=== PATIENT | female | born 1980 | race Caucasian/White ===

== ENCOUNTER 2017-10-24 10:03 | Inpatient (IN) | payer MEDICARE ==
[~2017-10-24] VITALS: Ht 165.1 cm; Wt 54.0 kg
[2017-10-24] MEDS ORDERED: HALOPERIDOL 5 MG TABLET PO PRN (13:30)
[2017-10-24] MEDS ORDERED: ZOLPIDEM TARTRATE 10 MG TABLET PO PRN (13:30)
[2017-10-24 13:49] VITALS: BP 96/66
[2017-10-24] MEDS ORDERED: RISP2 PO (14:16)
[2017-10-24 16:00] VITALS: BP 112/72
[2017-10-24] MEDS: LORazepam 2 MG TABLET PO PRN (21:11)
[2017-10-25] MEDS: RisperiDONE 2 MG TABLET PO SCH ×2 (08:42→16:35)
[2017-10-25] MEDS ORDERED: MAGNESIUM HYDROXIDE SUSPENSION 30 ML UDCUP PO PRN (11:15)
[2017-10-25] MEDS ORDERED: ACETAMINOPHEN 325 MG TABLET PO PRN (11:15)
[2017-10-25] MEDS ORDERED: PETROLATUM,WHITE 71 GM JELLY TP PRN (11:15)
[2017-10-25] MEDS ORDERED: IBUPROFEN 400 MG TABLET PO PRN (11:15)
[2017-10-25] MEDS ORDERED: ONDANSETRON HCL 4 MG TABLET PO PRN (11:15)
[2017-10-25] MEDS ORDERED: ALBUTEROL SULFATE HFA 90 MCG/PUFF 8 GM INHALER IH PRN (11:15)
[2017-10-25] MEDS ORDERED: LOPERAMIDE HCL 2 MG CAPSULE PO PRN (11:15)
[2017-10-25] MEDS ORDERED: CloNIDine HCL 0.1 MG TABLET PO PRN (11:15)
[2017-10-25] MEDS ORDERED: DOCUSATE SODIUM 100 MG CAPSULE PO PRN (11:15)
[2017-10-25] MEDS ORDERED: MAG HYDROX/AL HYDROX/SIMETH ES 30 ML SUSPENSION UDCUP PO PRN (11:15)
[2017-10-25] MEDS: LORazepam 2 MG TABLET PO PRN (16:35)
[2017-10-25 16:50] VITALS: BP 108/64
[2017-10-26] MEDS: RisperiDONE 3 MG TABLET PO SCH ×2 (08:51→16:28)
[2017-10-26] MEDS: LORazepam 2 MG TABLET PO PRN ×2 (08:51→17:57)
[2017-10-26] MEDS: NICOTINE 14 MG/24 HOUR PATCH TD SCH (08:57)
[2017-10-26 16:06] VITALS: BP 112/67
[2017-10-27] MEDS: LORazepam 2 MG TABLET PO PRN (08:18)
[2017-10-27] MEDS: RisperiDONE 3 MG TABLET PO SCH ×2 (08:18→16:24)
[2017-10-27] MEDS: NICOTINE 14 MG/24 HOUR PATCH TD SCH (08:18)
[2017-10-28] MEDS: RisperiDONE 3 MG TABLET PO SCH ×2 (08:48→16:46)
[2017-10-28] MEDS: LORazepam 2 MG TABLET PO PRN ×2 (08:48→16:46)
[2017-10-28] MEDS: NICOTINE 14 MG/24 HOUR PATCH TD SCH (08:48)
[2017-10-28] MEDS ORDERED: SERTRALINE HCL 50 MG TABLET PO SCH (21:00)
[2017-10-29] MEDS: RisperiDONE 3 MG TABLET PO SCH ×2 (09:53→16:25)
[2017-10-29] MEDS: NICOTINE 14 MG/24 HOUR PATCH TD SCH (09:53)
[2017-10-29] MEDS ORDERED: NICOTINE 14 MG/24 HOUR PATCH TD ONE (14:45)
[2017-10-29 16:00] VITALS: BP 106/69
[2017-10-29] MEDS: DIVALPROEX SODIUM 250 MG ER TABLET PO SCH (17:00)
[2017-10-30] MEDS: NICOTINE 14 MG/24 HOUR PATCH TD SCH (08:23)
[2017-10-30] MEDS: RisperiDONE 3 MG TABLET PO SCH ×2 (08:23→16:40)
[2017-10-30 08:32] VITALS: BP 111/54
[2017-10-30] MEDS: DIVALPROEX SODIUM 250 MG ER TABLET PO SCH ×2 (09:00→16:42)
[2017-10-30 16:00] VITALS: BP 110/64
[2017-10-31 04:30] VITALS: BP 112/68
[2017-10-31 08:25] VITALS: BP 102/72
[2017-10-31] MEDS: RisperiDONE 3 MG TABLET PO SCH (10:03)
[2017-10-31] MEDS: NICOTINE 14 MG/24 HOUR PATCH TD SCH (10:03)
== END 2017-10-31 09:30 | disposition home or self-care (01) | DRG 885 ==
LOC: B3A 13:41
PROVIDERS: ADMIT Psychiatry & Neurology Psychiatry; ATTEND Psychiatry & Neurology Psychiatry
DX: F25.9 Schizoaffective disorder, unspecified (principal); F10.10 Alcohol abuse, uncomplicated; Y90.9 Presence of alcohol in blood, level not specified; F15.90 Other stimulant use, unspecified, uncomplicated; F41.9 Anxiety disorder, unspecified; G47.00 Insomnia, unspecified; Z59.0 Homelessness; Z91.19 Patient's noncompliance with other medical treatment and regimen; I95.9 Hypotension, unspecified
CPT/HCPCS: 87081

== ENCOUNTER 2018-06-18 17:07 | Inpatient (IN) | payer MEDICARE ==
[~2018-06-18] VITALS: Ht 162.6 cm; Wt 55.3 kg
[~2018-06-18 17:07] MED LIST: RISP2 PO
[2018-06-18 19:06] LABS: BASOPHILS % (AUTO) 1.3 % (0.0-2.0); EOSINOPHILS % (AUTO) 2.7 % (1.0-6.0); HEMATOCRIT 37.4 % (36-46); HEMOGLOBIN 12.9 g/dL (12.0-16.0); LYMPHOCYTES # (AUTO) 1.3 K/uL (1.0-4.8); LYMPHOCYTES % (AUTO) 26.6 % (22.0-44.0); MEAN CORPUSCULAR HEMOGLOBIN 29.6 pg (26.0-34.0); MEAN CORPUSCULAR HGB CONC 34.6 G/dL (31.0-37.0); MEAN CORPUSCULAR VOLUME 86 fL (80-100); MONOCYTES # (AUTO) 0.5 K/uL (0.1-1.0); MONOCYTES % (AUTO) 10.2 % (2.0-9.0); NEUTROPHILS # (AUTO) 2.8 K/uL (1.8-7.7); NEUTROPHILS % (AUTO) 59.2 % (40.0-70.0); PLATELET COUNT (AUTO) 204 K/uL (150-450); RED BLOOD CELL COUNT(AUTO) 4.37 MIL/uL (4.00-5.20); RED CELL DISTRIBUTION WIDTH 13.5 % (11.5-14.5)
[2018-06-18 19:26] LABS: ANION GAP 2 mmol/L (8-16); CALCIUM, TOTAL 9.1 mg/dL (8.8-10.5); CARBON DIOXIDE 31 mmol/L (22-29); CHLORIDE 104 mmol/L (98-107); CREATININE 0.65 mg/dL (0.60-1.30); GLOMERULAR FILTR. RATE CALC > 60 mL/min (>60); GLUCOSE,RANDOM 84 mg/dL (70-110); POTASSIUM 3.7 mmol/L (3.5-5.1); SODIUM SERUM 137 mmol/L (136-145); UREA NITROGEN, BLOOD 7 mg/dL (7-18)
[2018-06-18] MEDS ORDERED: HALOPERIDOL LACTATE 5 MG/ML VIAL IM ONE (19:30)
[2018-06-18] MEDS ORDERED: LORazepam 2 MG/ML VIAL IM ONE (19:30)
[2018-06-18] MEDS ORDERED: DiphenhydrAMINE HCL 50 MG/ML VIAL IM ONE (19:30)
[2018-06-18 19:32] LABS: ALANINE AMINOTRANSFERASE 17 U/L (12-78); ALBUMIN 3.6 g/dL (3.4-5.0); ALKALINE PHOSPHATASE 76 U/L (46-116); ASPARTATE AMINOTRANSFERASE 20 U/L (15-37); BILIRUBIN,TOTAL 0.3 mg/dL (0.1-1.0); TOTAL PROTEIN, SERUM 6.7 g/dL (6.4-8.2)
[2018-06-18] MEDS ORDERED: LORazepam 2 MG TABLET PO ONE (19:45)
[2018-06-18] MEDS ORDERED: HALOPERIDOL 5 MG TABLET PO ONE (19:45)
[2018-06-18] MEDS ORDERED: DiphenhydrAMINE HCL 25 MG CAPSULE PO ONE (19:45)
[2018-06-18 20:00] LABS: AMPHET/METH SCREEN,URINE POSITIVE (NEGATIVE); BARBITURATE SCREEN, URINE NEGATIVE (NEGATIVE); BENZODIAZEPINES SCREEN,URINE NEGATIVE (NEGATIVE); CANNABINOID SCREEN,URINE NEGATIVE (NEGATIVE); COCAINE SCREEN,URINE NEGATIVE (NEGATIVE); METHADONE SCREEN, URINE NEGATIVE (NEGATIVE); OPIATE SCREEN,URINE NEGATIVE (NEGATIVE)
[2018-06-18 20:01] LABS: PHENCYCLIDINE SCREEN,URINE NEGATIVE (NEGATIVE)
[2018-06-18] MEDS ORDERED: HALOPERIDOL 5 MG TABLET PO PRN (21:00)
[2018-06-18] MEDS ORDERED: ZOLPIDEM TARTRATE 10 MG TABLET PO PRN (21:00)
[2018-06-18] MEDS ORDERED: LORazepam 2 MG TABLET PO PRN (21:00)
[2018-06-19 01:17] VITALS: BP 120/81
[2018-06-19] MEDS ORDERED: BACITRACIN 28.4 GM OINTMENT TP PRN (07:45)
[2018-06-19] MEDS ORDERED: ALBUTEROL SULFATE HFA 90 MCG/PUFF 8 GM INHALER IH PRN (07:45)
[2018-06-19] MEDS ORDERED: CloNIDine HCL 0.1 MG TABLET PO PRN (07:45)
[2018-06-19] MEDS ORDERED: ACETAMINOPHEN 325 MG TABLET PO PRN (07:45)
[2018-06-19] MEDS ORDERED: PETROLATUM,WHITE 71 GM JELLY TP PRN (07:45)
[2018-06-19] MEDS ORDERED: BENZOCAINE/MENTHOL LOZENGE MM PRN (07:45)
[2018-06-19] MEDS ORDERED: LOPERAMIDE HCL 2 MG CAPSULE PO PRN (07:45)
[2018-06-19] MEDS ORDERED: ONDANSETRON HCL 4 MG TABLET PO PRN (07:45)
[2018-06-19] MEDS ORDERED: MAGNESIUM HYDROXIDE SUSPENSION 30 ML UDCUP PO PRN (07:45)
[2018-06-19] MEDS ORDERED: IBUPROFEN 600 MG TABLET PO PRN (07:45)
[2018-06-19] MEDS ORDERED: MAG HYDROX/AL HYDROX/SIMETH ES 30 ML SUSPENSION UDCUP PO PRN (07:45)
[2018-06-19 08:17] VITALS: BP 114/63
[2018-06-19] MEDS: DOCUSATE SODIUM 100 MG CAPSULE PO SCH (09:00)
[2018-06-19] MEDS: OMEPRAZOLE 20 MG CAPSULE PO SCH (09:00)
[2018-06-19] MEDS ORDERED: HALOPERIDOL LACTATE 5 MG/ML VIAL ONE (12:54)
[2018-06-19] MEDS ORDERED: LORazepam 2 MG/ML VIAL ONE (12:54)
[2018-06-19] MEDS ORDERED: DiphenhydrAMINE HCL 50 MG/ML VIAL ONE (12:54)
[2018-06-19] MEDS ORDERED: HALOPERIDOL LACTATE 5 MG/ML VIAL IM ONE (13:15)
[2018-06-19] MEDS ORDERED: DiphenhydrAMINE HCL 50 MG/ML VIAL IM ONE (13:15)
[2018-06-19] MEDS ORDERED: LORazepam 2 MG/ML VIAL IM ONE (13:15)
[2018-06-19 13:40] VITALS: BP 109/67
[2018-06-20 01:08] VITALS: BP 117/65
[2018-06-20] MEDS: DIVALPROEX SODIUM 500 MG DR TABLET PO SCH ×2 (08:58→17:00)
[2018-06-20] MEDS: OMEPRAZOLE 20 MG CAPSULE PO SCH (08:58)
[2018-06-20] MEDS: DOCUSATE SODIUM 100 MG CAPSULE PO SCH (08:58)
[2018-06-20] MEDS: RisperiDONE 3 MG TABLET PO SCH ×2 (08:59→17:00)
[2018-06-20 09:05] VITALS: BP 103/66
[2018-06-21 06:57] VITALS: BP 110/68
[2018-06-21] MEDS: DIVALPROEX SODIUM 500 MG DR TABLET PO SCH ×2 (08:51→17:00)
[2018-06-21] MEDS: RisperiDONE 3 MG TABLET PO SCH ×2 (08:51→17:00)
[2018-06-21] MEDS: OMEPRAZOLE 20 MG CAPSULE PO SCH (08:51)
[2018-06-21] MEDS: DOCUSATE SODIUM 100 MG CAPSULE PO SCH (08:51)
[2018-06-21] MEDS ORDERED: NICOTINE 21 MG/24 HOUR PATCH TD PRN (12:15)
[2018-06-21] MEDS ORDERED: RISP3 PO (12:46)
[2018-06-21] MEDS: NICOTINE 21 MG/24 HOUR PATCH TD SCH (13:15)
[2018-06-21 16:15] VITALS: BP 122/65
[2018-06-22 05:49] VITALS: BP 116/67
[2018-06-22 08:32] VITALS: BP 102/71
[2018-06-22] MEDS ORDERED: NICOTINE 21 MG/24 HOUR PATCH TD SCH (09:00)
[2018-06-22] MEDS: DOCUSATE SODIUM 100 MG CAPSULE PO SCH (09:00)
[2018-06-22] MEDS: DIVALPROEX SODIUM 500 MG DR TABLET PO SCH ×2 (09:00→16:45)
[2018-06-22] MEDS: RisperiDONE 3 MG TABLET PO SCH ×2 (09:00→16:45)
[2018-06-22] MEDS: OMEPRAZOLE 20 MG CAPSULE PO SCH (09:00)
[2018-06-22] MEDS: NICOTINE 21 MG/24 HOUR PATCH TD SCH (09:43)
[2018-06-22 16:06] VITALS: BP 123/66
[2018-06-23 01:35] VITALS: BP 110/68
[2018-06-23 08:13] VITALS: BP 118/63
[2018-06-23] MEDS: DOCUSATE SODIUM 100 MG CAPSULE PO SCH (08:46)
[2018-06-23] MEDS: NICOTINE 21 MG/24 HOUR PATCH TD SCH (08:46)
[2018-06-23] MEDS: OMEPRAZOLE 20 MG CAPSULE PO SCH (08:47)
[2018-06-23] MEDS: DIVALPROEX SODIUM 500 MG DR TABLET PO SCH ×2 (08:47→17:00)
[2018-06-23] MEDS: RisperiDONE 3 MG TABLET PO SCH ×2 (08:47→17:00)
[2018-06-23 16:13] VITALS: BP 106/65
[2018-06-24 05:58] VITALS: BP 116/67
[2018-06-24 08:27] VITALS: BP 109/70
[2018-06-24] MEDS: DOCUSATE SODIUM 100 MG CAPSULE PO SCH (08:48)
[2018-06-24] MEDS: DIVALPROEX SODIUM 500 MG DR TABLET PO SCH ×2 (08:48→16:39)
[2018-06-24] MEDS: RisperiDONE 3 MG TABLET PO SCH ×2 (08:48→16:39)
[2018-06-24] MEDS: OMEPRAZOLE 20 MG CAPSULE PO SCH (08:48)
[2018-06-24] MEDS: NICOTINE 21 MG/24 HOUR PATCH TD SCH (08:48)
[2018-06-24] MEDS ORDERED: PALIPERIDONE PALMITATE 234 MG/1.5 ML SYRINGE IM SCH (16:00)
[2018-06-24 16:39] VITALS: BP 112/69
[2018-06-25 00:05] VITALS: BP 119/64
[2018-06-25] MEDS: DOCUSATE SODIUM 100 MG CAPSULE PO SCH (08:15)
[2018-06-25] MEDS: OMEPRAZOLE 20 MG CAPSULE PO SCH (08:15)
[2018-06-25] MEDS: DIVALPROEX SODIUM 500 MG DR TABLET PO SCH (08:15)
[2018-06-25] MEDS: NICOTINE 21 MG/24 HOUR PATCH TD SCH (08:15)
[2018-06-25] MEDS: RisperiDONE 3 MG TABLET PO SCH (08:16)
[2018-06-25 08:26] VITALS: BP 110/60
[2018-06-25] MEDS ORDERED: DIVA125SP PO (13:13)
[2018-06-25] MEDS ORDERED: DIVA-78 PO (13:17)
== END 2018-06-25 16:00 | disposition home or self-care (01) | DRG 885 ==
LOC: EMS 17:08 → 3EX 21:29 → B2X 21:30
PROVIDERS: ADMIT Psychiatry & Neurology Psychiatry; ATTEND Psychiatry & Neurology Psychiatry
DX: F25.0 Schizoaffective disorder, bipolar type (principal); F17.200 Nicotine dependence, unspecified, uncomplicated; F39 Unspecified mood [affective] disorder; F41.9 Anxiety disorder, unspecified; G47.00 Insomnia, unspecified; K59.00 Constipation, unspecified; Z71.6 Tobacco abuse counseling; Z59.0 Homelessness; Z91.14 Patient's other noncompliance with medication regimen; S09.90XA Unspecified injury of head, initial encounter; X58.XXXA Exposure to other specified factors, initial encounter
CPT/HCPCS: G0480; J1200; J1630; J2060

== ENCOUNTER 2018-06-19 14:25 | Emergency (ER) | payer MEDICARE ==
[~2018-06-19] VITALS: Ht 160 cm; Wt 54.5 kg
[2018-06-19 18:07] VITALS: BP 106/67
== END 2018-06-19 18:08 | disposition home or self-care (01) ==
LOC: EMS 14:26
DX: S09.90XA Unspecified injury of head, initial encounter (principal); F17.210 Nicotine dependence, cigarettes, uncomplicated; Z79.899 Other long term (current) drug therapy; W22.01XA Walked into wall, initial encounter; Y93.89 Activity, other specified; Y92.89 Other specified places as the place of occurrence of the external cause; Y99.8 Other external cause status
CPT/HCPCS: 70450